=== PATIENT | female | born 1995 | race Caucasian/White ===

== ENCOUNTER 2019-05-31 04:02 | Inpatient (IN) ==
[2019-05-31] MEDS ORDERED: BUPIVACAINE 0.25% 30 ML VIAL ONE ×2 (11:02→23:29)
[2019-05-31] MEDS ORDERED: ePHEDrine sulfate 50 MG/ML AMP ONE (11:02)
[2019-05-31] MEDS ORDERED: LACTATED RINGER'S 1,000 ML IV ONE (11:02)
[2019-05-31] MEDS ORDERED: fentaNYL 2MCG/ML ROPIV 1.25MG/ML 100 ML BAG EPI ONE (11:03)
[2019-05-31] MEDS ORDERED: fentaNYL citrate 100 MCG/2 ML VIAL ONE (11:03)
[2019-05-31 11:24] LABS: Hematocrit (blood only) 33.5 % (37-47); Hemoglobin 11.5 g/dL (12.0-16.0); Mean Corpuscular Volume 84.2 fL (80-100); Mean Platelet Volume 10.7 fL (7.4-10.4); Platelet Count 322 K/uL (130-400); RDW Standard Deviation 39.4 fL (36.4-46.3); Red Blood Count 3.98 M/uL (4.2-5.4); White Blood Count 19.02 K/uL (4.8-10.8)
[2019-05-31 11:28] LABS: Mean Corpuscular Hgb Conc 34.3 g/dL (32-36)
--- NOTE | 2019-05-31 11:29 | Anesthesiology Consultation ---
Date of Service May 31, 2019 Assessment & Plan (1) Encounter for pre-operative examination: Chart Review Chart Review: Patient NOT seen in Pre Admission Testing and Acceptable Risk for Labor Epidural Consults Requested none ASA ASA2 Proposed Anesthesia Anesthesia Type: Labor Epidural Risk / Benefits Reviewed With: PT / POA / Parent / Guardian, Accepts Plan and Informed Consent Obtained History Height/Weight Height: 5 ft 7 in Weight: 80.739 kg Allergies Allergy/AdvReac Type Severity Reaction Status Date / Time No Known Allergies Allergy Unverified 03/25/19 15:26 Medications Home Medications Medication Instructions Recorded Confirmed Last Taken PNV cmb#95-ferrous fumarate-FA 1 tab PO DAILY 03/25/19 05/31/19 05/29/19 12:00 [] ranitidine HCl [Zantac 75] 75 mg PO DAILY PRN 03/25/19 05/31/19 05/30/19 23:00 Active Medications Generic Name Dose Route Start Last Admin Trade Name Freq PRN Reason Stop Dose Admin Lactated Ringer's 1,000 mls @ 999 mls/hr 05/31/19 11:02 05/31/19 10:52 Lr IV 05/31/19 12:02 999 mls/hr .Q1H1M ONE Administration NPO Date Last Intake of Fluids: 05/31/19 Time Last Intake of Fluids: 11:24 Date Last Intake of Solids: 05/31/19 Time Last Intake of Solids: 05:00 Exercise / Class Metabolic Activity II 4-5 Yardwork/Stairs/Walk up hill Past Surgical History Surgical History History of laparoscopy (Acute) History of foot surgery Past Anesthesia History No Hx of Anesthesia Complications History of PONV No Hx of PONV and Hx of Motion Sickness Social History Smoking Status: Never smoker Do You Dip or Chew Tobacco: No Hx Alcohol Use: No Hx Substance Use: No substance use type: does not use Review of Systems Patient denies history of abnormal bleeding or bleeding disorder. Patient denies active use of anticoagulants other than low dose aspirin. Patient denies numbness, tingling or weakness in lower extremities. Negative for chest pain or shortness of breath. Patient denies active symptoms of GERD. Patient denies numbness, tingling or weakness in lower extremities. Physical Exam Vital Signs Last Vital Signs Temp 36.7 C 05/31/19 10:29 Pulse 68 05/31/19 10:29 Resp 20 05/31/19 10:29 BP 114/58 L 05/31/19 10:29 Constitutional not obese (Gravid uterus) ENMT Mouth: no TMJ abnormality and oral opening not small Thyromental Distance: > or= 3.5 Finger Breadths Mallampati Class: II Neck normal visual inspection; neck extension not limited Respiratory normal respiratory effort Auscultation: lungs clear to auscultation bilaterally Cardiovascular Rate/Rhythm: regular rate and regular rhythm Heart Sounds: no murmur Neurologic moves all extremities Psychiatric Orientation: alert and oriented x 3 Testing Laboratory Results labs reviewed and ok - plts at [phone]
[2019-05-31] MEDS ORDERED: NALOXONE HCL 0.4 MG/1 ML VIAL/CARP IV PRN (11:36)
[2019-05-31] MEDS ORDERED: NALOXONE HCL 1 MG in SODIUM CHLORIDE 0.9% 1000ML 1,000 ML IV PRN (11:36)
[2019-05-31] MEDS ORDERED: ONDANSETRON INJ 2 MG/ML 2 ML VIAL IV PRN (11:36)
[2019-05-31] MEDS ORDERED: NALBUPHINE HCL INJ 10 MG/ML AMP IV PRN (11:36)
[2019-05-31] MEDS ORDERED: DiphenhydrAMINE HCL 50 MG/ML VIAL IV PRN (11:36)
[2019-05-31] MEDS ORDERED: fentaNYL 2MCG/ML ROPIV 1.25MG/ML 100 ML BAG EPI PRN (11:36)
[2019-05-31] MEDS ORDERED: ePHEDrine sulfate 50 MG/ML AMP IV PRN (11:36)
[2019-05-31] MEDS: LACTATED RINGER'S 1,000 ML IV SCH ×2 (11:54→17:01)
[2019-05-31] MEDS ORDERED: OXYTOCIN 30 UNITS/500 ML BAG IV PRN (18:52)
[2019-06-01] MEDS ORDERED: CITRIC ACID/SODIUM CITRATE 15 ML UDC ONE ×2 (00:06→00:14)
[2019-06-01] MEDS ORDERED: cefOXitin 2,000 MG in DEXTROSE 5% 50 ML IV STA (00:10)
[2019-06-01] MEDS: LACTATED RINGER'S 1,000 ML IV SCH ×4 (00:23→13:59)
[2019-06-01] MEDS ORDERED: LIDOCAINE/EPINEPHRINE 2% 1:200,000 20 ML SDV ONE (01:38)
[2019-06-01] MEDS ORDERED: OXYTOCIN 10 UNITS/ML VIAL ONE ×4 (01:38→02:19)
[2019-06-01] MEDS: OXYTOCIN 10 UNITS/ML VIAL ONE ×2 (01:45→07:35)
[2019-06-01] MEDS ORDERED: MoRPHine SULFATE PF 1 MG/ML 10 ML AMP/VIAL ONE (01:46)
[2019-06-01] MEDS ORDERED: PROMETHAZINE HCL INJ 25 MG/ML 1 ML VIAL ONE (01:56)
[2019-06-01] MEDS ORDERED: NALOXONE HCL 0.4 MG/1 ML VIAL/CARP IV PRN (02:28)
[2019-06-01] MEDS ORDERED: DiphenhydrAMINE HCL 50 MG/ML VIAL IV PRN ×2 (02:28→20:30)
[2019-06-01] MEDS ORDERED: ePHEDrine sulfate 50 MG/ML AMP IV PRN (02:28)
[2019-06-01] MEDS ORDERED: MoRPHine SULFATE PF 1 MG/ML 10 ML AMP/VIAL EPI ONE (02:28)
[2019-06-01] MEDS ORDERED: LACTATED RINGER'S 500 ML IV PRN (02:28)
[2019-06-01] MEDS ORDERED: NALBUPHINE HCL INJ 10 MG/ML AMP IV PRN (02:28)
[2019-06-01] MEDS ORDERED: MoRPHine SULFATE 2 MG/ML CARP IV PRN (02:28)
[2019-06-01] MEDS ORDERED: PROMETHAZINE HCL 25 MG in SODIUM CHLORIDE 0.9% 50 ML IV PRN ×2 (02:28→20:30)
[2019-06-01] MEDS ORDERED: ACETAMINOPHEN 1000 MG/100 ML IV IV PRN (02:28)
[2019-06-01] MEDS ORDERED: NALOXONE HCL 1 MG in SODIUM CHLORIDE 0.9% 1000ML 1,000 ML IV PRN (02:28)
[2019-06-01] MEDS ORDERED: ONDANSETRON INJ 2 MG/ML 2 ML VIAL IV PRN ×2 (02:28→20:30)
[2019-06-01] MEDS ORDERED: NALOXONE HCL 0.08 MG in SYRINGE 1.8 ML IV PRN (02:28)
[2019-06-01] MEDS ORDERED: NO NARCOTICS OR SEDATIVES SCH (02:30)
[2019-06-01] MEDS ORDERED: SODIUM CHLORIDE 0.9% 1000ML 1,000 ML IV SCH (02:30)
[2019-06-01] MEDS ORDERED: DC INTRASPINAL MORPHINE SCH (02:30)
[2019-06-01] MEDS ORDERED: HYDROCORTISONE ACETATE 25 MG SUPP PR PRN (02:34)
[2019-06-01] MEDS ORDERED: SUPERCREAM 0.870% 15 GM JAR EXT PRN (02:34)
[2019-06-01] MEDS ORDERED: SENNA 8.6 MG TAB PO PRN (02:34)
[2019-06-01] MEDS ORDERED: BENZOCAINE 20% AER SPR 82.5 GM CAN EXT PRN (02:34)
[2019-06-01] MEDS ORDERED: DIPHTHERIA/TETANUS/PERTUSSIS 0.5 ML SYR/VIAL IM ONE (02:34)
[2019-06-01] MEDS ORDERED: MAGNESIUM HYDROXIDE SUSP 30 ML UDC PO PRN (02:34)
--- NOTE | 2019-06-01 02:34 | Post Operative Brief Note ---
Immediate Post Op Note v1 Date of Surgery June 01, 2019 Pre & Post Diagnosis Operation Date: 06/01/19 00:00 Pre-Op Diagnosis: 1. CPD Post-Op Diagnosis: Same Delivery of live female child at 0141 Lower uterine transverse incision Procedure Operation Date: 06/01/19 00:00 Actual Procedures p Section in LD - Raphael Oquendo MD Surgeon Raphael Oquendo MD Social Services Assistant Dr. Hdz Estimated Blood Loss 650 Findings Consistent with Post-Op Diagnosis Fluids 1200 ml Specimens placenta Drains Lyons Catheter Anesthesia Type MAC Epidural Complications none Disposition Accompanied Patient To Recovery: No Disposition: Recovery Room
--- NOTE | 2019-06-01 02:41 | History and Physical Report ---
DATE OF ADMISSION: 06/01/2019 CHIEF COMPLAINT: Arrest of labor. HISTORY OF PRESENT ILLNESS: The patient is a 24-year-old 1, para 0, due date for this is 06/03/2019. She has had no problems. She went into spontaneous labor. When she was about 4+ cm, she was given epidural anesthesia for pain control. Her membranes ruptured spontaneously. She continued to labor. Eventually, her contractions spaced out and we augmented with IV Pitocin and Pitocin was increased up to the point where she began to have decelerations with pushing. She had an anterior cervical lip that basically was present for over 3 hours and would not clear despite the use of Pitocin and the head would not drop into the pelvis and this was despite IV Pitocin used for hours up to the point where she began to get decelerations, we had to turn it off. She was given a diagnosis of cephalopelvic disproportion and scheduled for a primary . PAST MEDICAL HISTORY: She has a long history of vulvodynia. PAST SURGICAL HISTORY: She had a laparoscopy done in which she found pelvic adhesions. She had wisdom teeth removed. ALLERGIES: No known drug allergies. SOCIAL HISTORY: No smoking, no alcohol intake. Works as an holistic nutritionist. FAMILY HISTORY: Mom is 55 in good health. Father 48 in good health. Half-brother and half-sister in good health. REVIEW OF SYSTEMS: Significant only for a long-term history of vulvodynia. PHYSICAL EXAMINATION: GENERAL: Well-developed, well-nourished, 24-year-old white female, alert, oriented x3 and cooperative in no acute distress, appeared her stated age. EYES: Conjunctivae are pink. Sclerae white, no evidence of jaundice. EARS: Had normal light reflex bilaterally. NOSE: Had normal mucosa. Septum is midline. There were no polyps. THROAT: No erythema or evidence of infection. Teeth are in good state of repair. HEAD: Normocephalic, normal distribution of hair. NECK: Supple. Trachea midline. Thyroid is not enlarged. There is no adenopathy appreciated. Both carotids are of good intensity. CHEST: Clear to auscultation and percussion. No wheezes, rales, or rhonchi appreciated. ABDOMEN: Consistent with a term size fetus. No CVA tenderness. MUSCULOSKELETAL: No calf tenderness. PELVIC: Large amount of molding, vertex presentation, -1 station, and anterior lip which was swollen, partial cervical lip that went from about 10 o'clock to anterior. IMPRESSIONS OF THIS CASE: Arrest of labor secondary to cephalopelvic disproportion. History of vulvodynia.
--- NOTE | 2019-06-01 03:19 | Operative Report ---
DATE OF OPERATION: 06/01/2019 PROCEDURE: Primary low segment section. INDICATIONS FOR SURGERY: Cephalopelvic disproportion. PREOPERATIVE DIAGNOSIS: Cephalopelvic disproportion. POSTOPERATIVE DIAGNOSIS: Delivered a live 8-pound 3-ounce female. SURGEON. Maximilian Oquendo MD NEWS BROADCASTER: Harry Hdz MD ESTIMATED BLOOD LOSS: 650 mL. ANESTHESIA: Epidural. OPERATIVE FINDINGS AND PROCEDURE: The patient was brought to the OR table, correctly identified by armband and conversation. Compression stockings had been applied and a Lyons catheter was inserted aseptically in the bladder and connected to gravity drainage. Lower abdomen was painted with an alcohol based sterilizing solution, draped in the usual sterile fashion. Adequacy of the anesthesia was tested and then a Pfannenstiel incision was made and carried down to the anterior fascia by sharp dissection. Hemostasis was secured by electrocauterization. Fascia was incised transversely from the underlying muscle by blunt and sharp dissection. Recti muscles were in the midline exposing peritoneum which was carefully raised and entered. Bladder blade was used to retract the bladder. Incision was made above the vesicouterine fold. The bladder was undermined bluntly and pushed out of the operative field. Lower uterine segment was scored with a knife and then entered with scissors. Meconium stained amniotic fluid was noted at this time. Summer Nanny's hand was inserted into the pelvic cavity. Vectis retractor was applied to the head and with fundal pressure, the infant's head was delivered. Shoulders were then delivered, then the body was delivered without difficulty. Cord was clamped and cut. The infant was attended to by the ornamental iron worker helper who was scrubbed and present at the time of delivery. Following this, cord blood was taken for cord gases. After getting out maximum amount of blood from the cord, the placenta was removed manually. Uterus, tubes, and ovaries were brought out through the incision. Uterine cavity was cleansed with a clean sponge. Ten units of Pitocin was injected into the myometrium. The myometrium layer was approximated with continuous interlocking suture of chromic. Endopelvic fascia was approximated over this layer with continuous interlocking suture of heavy duty Vicryl and 4 [id number] sutures of Vicryl were used to approximate the myometrial defect with [id number] sutures. Following this, hemostasis was good. The pelvis was cleansed of all blood clots and debris. The peritoneum was restored with a running chromic gut suture restoring the vesicouterine fold. Uterus, tubes, and ovaries were reinserted into the pelvic cavity. Peritoneum was closed with a mattress suture of chromic catgut. Recti muscles were approximated with interrupted [id number]-[id number] suture of chromic catgut. The fascia was closed with continuous interlocking suture of Vicryl on each side and tied in the midline. SubQ was approximated with running plain. The skin edges were approximated with staple clips. The patient tolerated the procedure well and left the OR in good condition. I attest to the content of the Intraoperative Record and any orders documented therein. Any exception s are noted below.
[2019-06-01] MEDS ORDERED: OXYTOCIN 20 UNITS in LACTATED RINGER'S 1,000 ML IV SCH (05:45)
[2019-06-01] MEDS ORDERED: CITRIC ACID/SODIUM CITRATE 15 ML UDC PO SCH (06:00)
--- NOTE | 2019-06-01 07:09 | Anesthesia Procedure Note ---
Date of Service June 01, 2019 Anesthesia Post Epidural Note Vital Signs Vital Signs: Temp Pulse Resp BP Pulse Ox 37.5 C 88 18 100/48 L 97 06/01/19 06:10 06/01/19 06:10 06/01/19 06:10 06/01/19 06:10 06/01/19 06:10 Pain Intensity Abdomen: Pain Intensity: 1 Notes Mental Status: alert / awake / arousable and participated in evaluation Nausea / Vomiting: adequately controlled Pain: adequately controlled Airway Patency, RR, SpO2: stable & adequate BP & HR: stable & adequate Hydration State: stable & adequate Neuraxial Anesthesia: was administered and sensory block is resolving Anesthetic Complications: no major complications apparent and Pt Satisfied with anesthetic care Epidural: Removed without complications and With tip intact
--- NOTE | 2019-06-01 07:09 | Anesthesiology Progress Note ---
Date of Service June 01, 2019 Anesthesia Post Procedure Vital Signs Vital Signs: Temp Pulse Pulse Resp BP BP Pulse Ox 06/01/19 06:10 37.5 C 88 18 100/48 L 97 06/01/19 05:10 37.1 C 95 H 16 108/56 L 92 06/01/19 04:58 91 H 129/58 L 100 06/01/19 04:53 86 100 06/01/19 04:48 94 H 125/56 L 100 06/01/19 04:43 93 H 99 06/01/19 04:38 37.1 C 94 H 18 136/61 100 06/01/19 04:33 105 H 100 06/01/19 04:28 103 H 127/61 100 06/01/19 04:23 97 H 100 06/01/19 04:18 99 H 139/59 L 100 06/01/19 04:13 106 H 100 06/01/19 04:08 106 H 18 118/56 L 100 06/01/19 04:03 89 99 06/01/19 03:58 88 121/58 L 99 06/01/19 03:53 83 99 06/01/19 03:48 85 120/55 L 99 06/01/19 03:43 89 100 06/01/19 03:38 37.0 C 91 H 16 121/56 L 100 06/01/19 03:33 87 100 06/01/19 03:28 85 18 118/55 L 99 06/01/19 03:23 94 H 100 06/01/19 03:20 18 06/01/19 03:18 83 120/57 L 99 06/01/19 03:13 87 100 06/01/19 03:08 88 18 121/62 98 06/01/19 03:03 101 H 98 06/01/19 02:58 37.4 C 102 H 16 97 06/01/19 02:53 100 H 97 06/01/19 02:48 92 H 18 111/57 L 100 06/01/19 02:43 84 100 06/01/19 02:38 38.2 C H 98 H 16 107/55 L 100 06/01/19 01:00 105 H 92 06/01/19 00:57 91 H 100 06/01/19 00:52 81 100 06/01/19 00:50 81 125/65 06/01/19 00:47 80 100 06/01/19 00:42 77 100 06/01/19 00:37 77 100 06/01/19 00:36 77 124/65 06/01/19 00:32 78 100 06/01/19 00:27 77 100 06/01/19 00:22 103 H 100 06/01/19 00:21 75 126/72 06/01/19 00:17 79 100 06/01/19 00:12 90 100 06/01/19 00:07 98 H 100 06/01/19 00:02 85 100 06/01/19 00:00 85 113/58 L 05/31/19 23:57 108 H 100 05/31/19 23:54 97 H 120/75 05/31/19 23:52 88 100 05/31/19 23:50 82 117/70 05/31/19 23:47 83 100 05/31/19 23:44 100 H 106/56 L 05/31/19 23:42 86 100 05/31/19 23:39 80 116/57 L 05/31/19 23:37 80 100 05/31/19 23:34 81 113/55 L 05/31/19 23:33 79 113/59 L 05/31/19 23:32 79 100 05/31/19 23:27 79 100 05/31/19 23:23 79 101/56 L 05/31/19 23:22 77 99 05/31/19 23:17 80 100 05/31/19 23:12 82 100 05/31/19 23:09 36.9 C 80 18 106/56 L 05/31/19 23:07 79 100 05/31/19 23:02 82 100 05/31/19 22:57 80 100 05/31/19 22:53 80 113/58 L 05/31/19 22:52 110 H 100 05/31/19 22:47 87 100 05/31/19 22:42 92 H 100 05/31/19 22:38 85 120/67 05/31/19 22:37 84 100 05/31/19 22:32 91 H 100 05/31/19 22:27 82 100 05/31/19 22:23 87 117/64 05/31/19 22:22 84 100 05/31/19 22:17 95 H 100 05/31/19 22:12 105 H 100 05/31/19 22:09 104 H 131/67 05/31/19 22:07 107 H 100 05/31/19 22:02 77 100 05/31/19 21:57 77 99 05/31/19 21:54 75 102/51 L 05/31/19 21:52 74 99 05/31/19 21:47 76 99 05/31/19 21:42 72 100 05/31/19 21:38 72 109/56 L 05/31/19 21:37 72 99 05/31/19 21:32 72 100 05/31/19 21:27 66 100 05/31/19 21:24 73 115/57 L 05/31/19 21:22 72 100 05/31/19 21:17 84 100 05/31/19 21:12 89 100 05/31/19 21:08 37.0 C 82 18 126/65 05/31/19 21:07 81 100 05/31/19 21:02 82 100 05/31/19 20:57 81 100 05/31/19 20:53 82 130/70 05/31/19 20:52 80 100 05/31/19 20:47 76 100 05/31/19 20:42 91 H 100 05/31/19 20:38 82 126/64 05/31/19 20:37 92 H 100 05/31/19 20:32 83 100 05/31/19 20:27 93 H 100 05/31/19 20:24 94 H 116/72 05/31/19 20:22 89 100 05/31/19 20:17 102 H 100 05/31/19 20:12 123 H 100 05/31/19 20:08 76 110/57 L 05/31/19 20:07 76 100 05/31/19 20:02 83 100 05/31/19 19:57 78 100 05/31/19 19:53 77 103/57 L 05/31/19 19:52 74 100 05/31/19 19:47 75 100 05/31/19 19:42 81 100 05/31/19 19:39 76 110/55 L 05/31/19 19:37 75 100 05/31/19 19:32 78 100 05/31/19 19:27 91 H 100 05/31/19 19:23 78 112/61 05/31/19 19:22 79 100 05/31/19 19:17 83 100 05/31/19 19:12 94 H 100 05/31/19 19:08 79 127/60 05/31/19 19:07 89 100 05/31/19 19:02 81 100 05/31/19 18:57 36.8 C 90 18 100 05/31/19 18:53 106 H 129/69 05/31/19 18:52 105 H 100 05/31/19 18:47 107 H 100 05/31/19 18:42 79 100 05/31/19 18:38 81 123/67 05/31/19 18:37 81 100 05/31/19 18:32 79 100 05/31/19 18:27 78 100 05/31/19 18:23 77 128/67 05/31/19 18:22 76 100 05/31/19 18:17 84 100 05/31/19 18:12 75 100 05/31/19 18:08 73 129/68 05/31/19 18:07 74 100 05/31/19 18:02 85 100 05/31/19 17:57 83 100 05/31/19 17:54 88 126/69 05/31/19 17:52 88 100 05/31/19 17:47 85 100 05/31/19 17:42 82 100 05/31/19 17:38 78 127/72 05/31/19 17:37 74 100 05/31/19 17:32 85 100 05/31/19 17:27 79 100 05/31/19 17:23 77 129/65 05/31/19 17:22 84 100 05/31/19 17:17 77 100 05/31/19 17:12 88 100 05/31/19 17:09 37.2 C 76 18 126/69 05/31/19 17:07 74 100 05/31/19 17:02 88 100 05/31/19 16:57 89 100 05/31/19 16:53 76 116/76 05/31/19 16:52 78 100 05/31/19 16:47 82 100 05 16:42 84 100 05 16:38 78 127/67 05 16:37 80 100 05/31/19 16:32 84 100 05/31/19 16:27 103 H 99 05/31/19 16:23 78 121/63 05/31/19 16:22 79 100 05/31/19 16:17 78 99 05/31/19 16:12 80 99 05/31/19 16:08 81 121/66 05/31/19 16:07 81 99 05/31/19 16:02 80 100 05/31/19 15:57 77 100 05/31/19 15:54 74 118/70 05/31/19 15:52 77 99 05/31/19 15:47 78 100 05/31/19 15:42 80 100 05/31/19 15:38 83 116/67 05/31/19 15:37 80 100 05/31/19 15:32 78 100 05/31/19 15:27 81 100 05/31/19 15:23 79 120/68 05/31/19 15:22 79 100 05/31/19 15:17 81 100 05/31/19 15:12 77 100 05/31/19 15:08 85 118/71 05/31/19 15:07 83 100 05/31/19 15:05 37.2 C 18 05/31/19 15:02 81 100 05/31/19 14:57 81 100 05/31/19 14:53 69 117/61 05/31/19 14:52 78 99 05/31/19 14:47 69 99 05/31/19 14:42 72 100 05/31/19 14:38 77 118/65 05/31/19 14:37 76 100 05/31/19 14:32 72 100 05/31/19 14:27 71 100 05/31/19 14:23 71 108/58 L 05/31/19 14:22 70 99 05/31/19 14:19 36.9 C 16 05/31/19 14:17 75 100 05/31/19 14:12 83 100 05/31/19 14:09 67 108/59 L 05/31/19 14:07 66 100 05/31/19 14:02 65 100 05/31/19 13:57 69 99 05/31/19 13:53 68 16 107/57 L 05/31/19 13:52 69 100 05/31/19 13:47 67 100 05/31/19 13:42 83 100 05/31/19 13:38 74 112/58 L 05/31/19 13:37 78 99 05/31/19 13:32 101 H 100 05/31/19 13:27 83 100 05/31/19 13:24 85 113/62 05/31/19 13:22 79 100 05/31/19 13:17 81 100 05/31/19 13:12 82 100 05/31/19 13:08 37.0 C 86 16 117/68 05/31/19 13:07 85 100 05/31/19 13:02 80 100 05/31/19 12:57 79 100 05/31/19 12:53 71 119/65 05/31/19 12:52 73 100 05/31/19 12:47 75 100 05/31/19 12:42 76 100 05/31/19 12:39 72 119/67 05/31/19 12:37 75 100 05/31/19 12:32 79 100 05/31/19 12:27 82 100 05/31/19 12:22 96 H 124/77 100 05/31/19 12:20 92 H 126/74 05/31/19 12:18 90 118/70 05/31/19 12:17 91 H 100 05/31/19 12:16 94 H 118/69 05/31/19 12:14 96 H 123/70 05/31/19 12:12 91 H 125/70 100 05/31/19 12:10 93 H 123/68 05/31/19 12:08 88 126/63 05/31/19 12:07 92 H 100 05/31/19 12:06 92 H 125/70 05/31/19 12:04 96 H 128/69 05/31/19 12:02 81 126/70 100 05/31/19 12:00 90 125/71 05/31/19 11:59 80 122/65 05/31/19 11:57 86 100 05/31/19 11:52 86 100 05/31/19 11:47 98 H 100 05/31/19 11:46 36.7 C 91 H 20 123/69 05/31/19 11:27 75 119/60 05/31/19 10:29 36.7 C 68 20 114/58 L 05/31/19 09:28 75 20 124/78 Pain Intensity Abdomen: Pain Intensity: 1 Transfer of Care Handoff Completed per policy Notes Mental Status: alert / awake / arousable and participated in evaluation Nausea / Vomiting: adequately controlled Pain: adequately controlled Airway Patency, RR, SpO2: stable & adequate BP & HR: stable & adequate Hydration State: stable & adequate Neuraxial Anesthesia: was administered and sensory block is resolving Anesthetic Complications: no major complications apparent and Pt Satisfied with anesthetic care
[2019-06-01] MEDS: DOCUSATE SODIUM 100 MG CAP PO SCH ×2 (08:08→21:44)
[2019-06-01] MEDS: FERROUS SULFATE 325 MG TAB PO SCH (08:08)
[2019-06-01] MEDS: SIMETHICONE 80 MG CHEW PO SCH ×4 (08:08→21:44)
[2019-06-01] MEDS: PRENATAL VITAMIN 1 TAB PO SCH (08:08)
[2019-06-01] MEDS: KETOROLAC 30 MG/ML VIAL IV PRN ×2 (14:11→20:07)
[2019-06-01] MEDS ORDERED: KETOROLAC 30 MG/ML VIAL IV PRN (20:30)
[2019-06-01] MEDS ORDERED: ZOLPIDEM TARTRATE 5 MG TAB PO PRN (20:30)
[2019-06-01] MEDS ORDERED: MEPERIDINE HCL 50 MG/ML CARP IV PRN (20:30)
[2019-06-02] MEDS: IBUPROFEN 600 MG TAB PO PRN ×6 (00:19→20:28)
[2019-06-02] MEDS: OXYCODONE/ACETAMINOPHEN 5mg/325mg TAB PO PRN ×6 (00:19→20:28)
[2019-06-02 07:13] LABS: Basophils # (auto) 0.02 K/uL (0-0.2); Basophils % (auto) 0.1 %; Eosinophils # (auto) 0.39 K/uL (0-0.5); Eosinophils % (auto) 1.9 %; Hematocrit (blood only) 27.2 % (37-47); Hemoglobin 9.2 g/dL (12.0-16.0); Immature Granulocytes # (auto) 0.11 K/uL (0.00-0.02); Immature Granulocytes % (auto) 0.5 %; Lymphocytes # (auto) 2.83 K/uL (1.2-3.4); Lymphocytes % (auto) 13.7 %; Mean Corpuscular Hgb Conc 33.8 g/dL (32-36); Mean Corpuscular Volume 85.8 fL (80-100); Mean Platelet Volume 10.4 fL (7.4-10.4); Monocytes # (auto) 1.77 K/uL (0.11-0.59); Monocytes % (auto) 8.5 %; Neutrophils # (auto) 15.61 K/uL (1.4-6.5); Neutrophils % (auto) 75.3 %; Platelet Count 259 K/uL (130-400); RDW Coefficient of Variation 13.6 % (11.5-14.5); RDW Standard Deviation 42.5 fL (36.4-46.3); Red Blood Count 3.17 M/uL (4.2-5.4); White Blood Count 20.73 K/uL (4.8-10.8)
[2019-06-02] MEDS: DOCUSATE SODIUM 100 MG CAP PO SCH ×2 (08:17→20:28)
[2019-06-02] MEDS: FERROUS SULFATE 325 MG TAB PO SCH (08:18)
[2019-06-02] MEDS: SIMETHICONE 80 MG CHEW PO SCH ×4 (08:18→20:28)
[2019-06-02] MEDS: PRENATAL VITAMIN 1 TAB PO SCH (08:39)
--- NOTE | 2019-06-02 09:41 | Obstetrical Progress Note ---
Date of Service June 02, 2019 Physical Exam Physical Exam: abdomen soft and non tender bowel sounds are normal passing flatus incision is clean and dry vaginal bleeding scant hgb 9.2 ambulating well Results & Data Vital Signs (Past 12 Hours) Vital Signs Temp Pulse Pulse Resp BP Pulse Ox 06/02/19 08:00 36.7 C 69 18 88/48 L 98 06/02/19 00:00 36.5 C 93 H 18 102/54 L 97
--- NOTE | 2019-06-02 15:31 | Anesthesiology Progress Note ---
Date of Service June 02, 2019 Anesthesia Post Procedure Vital Signs Vital Signs: Temp Pulse Pulse Resp BP Pulse Ox 06/02/19 08:00 36.7 C 69 18 88/48 L 98 06/02/19 00:00 36.5 C 93 H 18 102/54 L 97 06/01/19 20:10 37.0 C 90 18 99/60 L 100 06/01/19 20:03 18 100 06/01/19 19:00 18 100 06/01/19 18:00 18 96 06/01/19 17:20 15 97 06/01/19 17:04 36.6 C 88 18 92/47 L 98 06/01/19 16:10 89 16 97 Pain Intensity Abdomen: Pain Intensity: 1 Notes Mental Status: see notes below (Pt was sleeping - spoke to her who was in the room) Nausea / Vomiting: adequately controlled Pain: adequately controlled Airway Patency, RR, SpO2: stable & adequate BP & HR: stable & adequate Hydration State: stable & adequate Neuraxial Anesthesia: was administered and sensory block resolved Anesthetic Complications: no major complications apparent and Pt Satisfied with anesthetic care
[2019-06-02] MEDS ORDERED: BISACODYL 5 MG TABEC PO SCH (20:00)
[2019-06-03] MEDS: OXYCODONE/ACETAMINOPHEN 5mg/325mg TAB PO PRN ×5 (01:25→20:49)
[2019-06-03] MEDS: IBUPROFEN 600 MG TAB PO PRN ×5 (01:25→20:48)
[2019-06-03] MEDS ORDERED: BISACODYL 10 MG SUPP PR PRN (02:34)
[2019-06-03] MEDS: PRENATAL VITAMIN 1 TAB PO SCH (08:42)
[2019-06-03] MEDS: DOCUSATE SODIUM 100 MG CAP PO SCH ×2 (08:42→22:03)
[2019-06-03] MEDS: SIMETHICONE 80 MG CHEW PO SCH ×3 (08:42→22:03)
[2019-06-03] MEDS: FERROUS SULFATE 325 MG TAB PO SCH (08:42)
[2019-06-03 09:04] LABS: Hematocrit (blood only) 28.8 % (37-47); Hemoglobin 9.5 g/dL (12.0-16.0)
--- NOTE | 2019-06-03 12:29 | Obstetrical Progress Note ---
Date of Service June 03, 2019 Physical Exam Physical Exam: abdomen soft and non tender vaginal bleeding scant to moderate hgb 9.5 incision is clean and dry no calf tenderness ambulating well Results & Data Vital Signs (Past 12 Hours) Vital Signs Temp Pulse Resp BP Pulse Ox 06/03/19 12:00 36.8 C 84 18 97/58 L 99 06/03/19 08:00 36.9 C 89 18 97/56 L 97
[2019-06-04] MEDS: OXYCODONE/ACETAMINOPHEN 5mg/325mg TAB PO PRN ×4 (00:21→11:36)
[2019-06-04] MEDS: IBUPROFEN 600 MG TAB PO PRN ×3 (00:25→11:34)
[2019-06-04] MEDS: FERROUS SULFATE 325 MG TAB PO SCH (07:52)
[2019-06-04] MEDS: PRENATAL VITAMIN 1 TAB PO SCH (07:52)
[2019-06-04] MEDS: DOCUSATE SODIUM 100 MG CAP PO SCH (07:52)
--- NOTE | 2019-06-04 08:34 | Obstetrical Progress Note ---
Date of Service June 04, 2019 Physical Exam Physical Exam: abdomen soft and non tender passing flatus incision is clean and dry no calf tenderness ambulating well ready for discharge hgb 9.5 Results & Data Vital Signs (Past 12 Hours) Vital Signs Temp Pulse Resp BP BP Pulse Ox 06/04/19 08:00 36.8 C 78 18 110/71 100 06/03/19 22:55 36.7 C 97 H 18 108/68 98
--- NOTE | 2019-06-04 11:06 | Discharge Summary ---
Radha Christy was admitted in spontaneous labor at 39+ weeks gestation. She received an epidural for anesthesia. She then was augmented with IV Pitocin, she went to full dilatation. She pushed for several hours. Eventually the baby started to experience decelerations with pushing. She was diagnosed with cephalopelvic disproportion taken to the OR where she underwent primary low segment section at which a pelvic inlet dystocia was diagnosed. Infant was delivered without difficulty. Postoperatively the patient did well. Her postoperative hemoglobin went from preop 11.5, hematocrit 33.5 to postop 9.5, hematocrit 28.8. Postoperatively, she had an uneventful course. She remained afebrile. Her bowel sounds returned promptly. At the time of discharge, she was ambulating well, eating well and given prescriptions for Percocet and Motrin for pain control and instructed to call the office if she had a temperature over 100 or any heavy bleeding and to return for removal of kristi.
== END 2019-06-04 14:48 | disposition home or self-care (01) | DRG 788 ==
LOC: OPB 04:02 → 4S1 04:06 → 4S2 06-01 05:29

== ENCOUNTER 2025-01-03 17:38 | Inpatient (IN) ==
--- NOTE | 2025-01-03 18:15 | History & Physical Report ---
Date of Service January 03, 2025 Assessment & Plan (1) Encounter for pre-operative examination: Plan: Repeat section. The patient was counseled to the nature of the procedure including alternatives such as labor. Risks were discussed including bleeding infection injury to bowel bladder ureter vessels and even baby. The risks of internal organ injury were discussed as being higher with prior sections. Deep Vein Thrombosis, pulmonary embolus and breakdown of the incision discussed. Deep vein thrombosis pulmonary embolus hernia and failure of the incision to heal were discussed Patient verbalized understanding of this and was given ample time to ask questions declines tubal. History of Present Illness Primary Care Provider: NO PCP Visit NAYAN Calculator Estimated Delivery Date Method Current WG Current Estimate 01/08/25 LMP (Certain) 38w 2d Other Estimates 01/10/25 Ultrasound #1 38w 0d LMP: 04/03/24 : 3 Full term: 1 Premature: 0 Total Number of Induced Abortions: 0 Total Number of Spontaneous Abortions: 1 Ectopics: 0 Multiple births: 0 Number of Living Children: 1 and Delivery Plans Previous *Favoring repeat. C/S SCHEDULED FOR 01/06/[address] 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, and Type 4 *FOB negative Hx of PPD Conceived on clomid Marginal cord insertion Rh neg *Rhogam given 10/19/24 - SP Protocols Allergies Allergy/AdvReac Type Severity Reaction Status Date / Time No Known Allergies Allergy Verified 12/27/24 10:46 Home Medications Medication Instructions Recorded Confirmed Type vit no.95-ferrous 1 tab PO DAILY 03/25/19 01/03/25 History fumarate 28 mg-folic acid 800 mcg tablet () breast pump #1 ea 10/06/24 12/27/24 Rx famotidine 20 mg tablet (Pepcid) 20 mg PO BID PRN Heartburn 12/23/24 01/03/25 History pseudoephedrine HCl [Sudafed] PO 12/27/24 12/27/24 History Patient History Medical History (Updated 12/23/24 @ 12:59 by Trina Freire PA-C) History of anesthesia reaction (2010) after foot surgery, patient woke up flailing, disoriented, uncontrollable - had to be resedated and woke up slowly without any further issues. Heartburn Asthma exercise induced, no inhalers - rarely has issues History of depression (2019) Miscarriage (07/2023) no surgical intervention needed Surgical History History of section (2018) History of colonoscopy History of foot surgery (2010) History of laparoscopy w/ adhesion removal S/P wisdom tooth extraction Family History Other No family history of adverse response to anesthesia Denies family history of Ovarian cancer Breast cancer Colorectal cancer Social History (Updated 05/31/24 @ 09:15 by Bety Andrews LPN) Smoking Status: Never smoker Second Hand Exposure: No; Do You Dip or Chew Tobacco: No; Hx Alcohol Use: No Hx Substance Use: No Preferred Language: Surinamese Communication Ability: Effective Nib Finisher Required: No Beliefs That Will Affect Care: None marital status: marital status details: Spouse Current Living Situation: Spouse and Family Current Living Situation Comment: lives with , daughter, 4 cats- changes litter, &guinea pigs current occupational status: employed current occupation: Doctor of Optometry How many Children do You have: 1 Feels Safe at Home: Yes Assistive Devices: Glasses Physical Exam Constitutional: WD/WN, vitals as above well developed and well nourished Respiratory: normal respiratory effort, lungs clear to auscultation normal respiratory effort Cardiovascular: RRR, no murmur, no edema Gastrointestinal (Abdomen): normal bowel sounds, soft, nontender, no hepatosplenomegaly Results & Data Vital Signs (Past 12 Hours) Vital Signs Pulse BP 01/03/25 18:01 77 112/71 Coding Level of Care Code None Diagnoses Encounter for pre-operative examination Z01.818
--- NOTE | 2025-01-03 18:22 | Communication Note ---
Date of Service: January 03, 2025 Note, active labor 2cm, 90%, C/S
[2025-01-03 18:44] LABS: Hematocrit (blood only) 34.9 % (37.0-47.0); Mean Corpuscular Hemoglobin 29.3 pg (25.0-34.0); Mean Corpuscular Hgb Conc 34.4 g/dL (32.0-36.0); Mean Corpuscular Volume 85.1 fL (80.0-100.0); Mean Platelet Volume 11.5 fL (9.4-12.4); Platelet Count 288 K/uL (130-400); RDW Coefficient of Variation 12.2 % (11.5-14.5); RDW Standard Deviation 37.5 fL (36.4-46.3); White Blood Count 11.63 K/ul (4.8-10.8)
--- NOTE | 2025-01-03 19:06 | Anesthesiology Consultation ---
Date of Service January 03, 2025 Assessment & Plan (1) Encounter for pre-operative examination: Chart Review Chart Review: Acceptable Risk for Surgery and Patient NOT seen in Pre Admission Testing Consults Requested none History Surgery Operation Date: 01/03/25 18:45 Proposed Procedures p Section in LD - JManjete Mckeon MD, FACOG Height/Weight Height: 5 ft 7 in Weight: 77.111 kg Allergies Allergy/AdvReac Type Severity Reaction Status Date / Time No Known Allergies Allergy Verified 12/27/24 10:46 Medications Home Medications Medication Instructions Recorded Confirmed Last Taken vit no.95-ferrous 1 tab PO DAILY 03/25/19 01/03/25 05/29/19 12:00 fumarate 28 mg-folic acid 800 mcg tablet () breast pump #1 ea 10/06/24 12/27/24 Unknown famotidine 20 mg tablet (Pepcid) 20 mg PO BID PRN Heartburn 12/23/24 01/03/25 01/02/25 pseudoephedrine HCl [Sudafed] PO 12/27/24 12/27/24 Unknown Past Medical History Medical History History of anesthesia reaction (2010) after foot surgery, patient woke up flailing, disoriented, uncontrollable - had to be resedated and woke up slowly without any further issues. Heartburn Asthma exercise induced, no inhalers - rarely has issues History of depression (2018) Miscarriage (07/2023) no surgical intervention needed Exercise / Class Metabolic Activity II 4-5 Yardwork/Stairs/Walk up hill Past Family History Family History Other No family history of adverse response to anesthesia Denies family history of Ovarian cancer Breast cancer Colorectal cancer Past Surgical History Surgical History History of colonoscopy History of section (2018) S/P wisdom tooth extraction History of foot surgery (2010) History of laparoscopy w/ adhesion removal Past Anesthesia History No Hx of Anesthesia Complications and No Family Hx of Anesthesia Complications Social History Smoking Status: Never smoker Do You Dip or Chew Tobacco: No Hx Alcohol Use: No Hx Substance Use: No substance use type: does not use Physical Exam Vital Signs Last Vital Signs Temp 36.9 C 01/03/25 18:12 Pulse 77 01/03/25 18:01 Resp 20 01/03/25 18:45 BP 112/71 01/03/25 18:01 Testing Laboratory Results 01/03/25 18:18
[2025-01-03] MEDS ORDERED: PHENYLEPHRINE HCL 25 MG/250 ML NSS IV ONE (19:09)
[2025-01-03] MEDS ORDERED: fentaNYL citrate PF 100 MCG/2 ML VIAL ONE (19:12)
[2025-01-03] MEDS ORDERED: MoRPHine SULFATE PF 1 MG/ML 10 ML AMP/VIAL ONE (19:12)
[2025-01-03] MEDS ORDERED: DEXAMETHASONE SOD INJ 4 MG/ML VIAL ONE (19:12)
[2025-01-03] MEDS ORDERED: ONDANSETRON INJ 2 MG/ML 2 ML VIAL ONE (19:12)
[2025-01-03] MEDS ORDERED: LACTATED RINGER'S 1,000 ML IV SCH ×2 (19:15→20:54)
[2025-01-03] MEDS: CITRIC ACID/SODIUM CITRATE 15 ML UDC PO SCH (19:24)
[2025-01-03] MEDS: ceFAZolin 2000MG 2,000 MG/15 ML SYR IV SCH (19:26)
[2025-01-03] MEDS: LACTATED RINGER'S 1,000 ML IV SCH (19:28)
[2025-01-03] MEDS: ACETAMINOPHEN 500 MG TAB PO SCH (19:29)
[2025-01-03] MEDS ORDERED: oxyCODONE HCL IR 5 MG TAB (IMMEDIATE RELEASE) PO PRN (19:49)
[2025-01-03] MEDS ORDERED: NALOXONE HCL 0.08 MG in SYRINGE 1.8 ML IV PRN (19:49)
[2025-01-03] MEDS ORDERED: NALBUPHINE HCL INJ 10 MG/ML AMP IV PRN (19:49)
[2025-01-03] MEDS ORDERED: HYDROmorphone INJ 0.5 MG/0.5 ML SYR IV PRN (19:49)
[2025-01-03] MEDS ORDERED: PROMETHAZINE 6.25 MG/50.25 ML BAG IV PRN (19:49)
[2025-01-03] MEDS ORDERED: ONDANSETRON INJ 2 MG/ML 2 ML VIAL IV PRN (19:49)
[2025-01-03] MEDS ORDERED: NALOXONE HCL 0.4 MG/1 ML VIAL/CARP IV PRN (19:49)
[2025-01-03] MEDS ORDERED: NALOXONE HCL 1 MG in SODIUM CHLORIDE 0.9% 1,000 ML IV PRN (19:49)
[2025-01-03] MEDS ORDERED: ePHEDrine sulfate 50 MG/ML AMP IV PRN (19:49)
[2025-01-03] MEDS ORDERED: DC INTRASPINAL MORPHINE SCH (20:00)
[2025-01-03] MEDS ORDERED: NO NARCOTICS OR SEDATIVES SCH (20:00)
--- NOTE | 2025-01-03 20:41 | Operative Report ---
Post Operative Report Pre & Post Diagnosis Operation Date: 01/03/25 18:45 Pre-Op Diagnosis: 1. Previous , labor Post-Op Diagnosis: 1. Same 2. Delivery of live female child at 1999 I identified the patient and participated in the time-out.: Yes Procedure Operation Date: 01/03/25 18:45 Actual Procedures p Section in LD - Don Mckeon MD, FACOG Surgeon Don Mckeon MD, FACOG Explosion Welder . Quantitative Blood Loss (QBL) 337 Findings Consistent with Post-Op Diagnosis Specimens . Description of Procedure Regional anesthetic had been given by anesthesia patient was prepped and draped with a leftward tilt preoperative antibiotics had been given in appropriate timing by anesthesiology. Once the prep was allowed to fully dry timeout was performed. Pickups with teeth were used to test the incision area was found to be adequate for incision as the patient did not feel sharp pain. Scalpel was used to make a Pfannenstiel incision on the lower abdomen. We then cut through the subcutaneous fat down to the level of the anterior rectus sheath fascia this was cut in the midline and then extended laterally with the curved Avila scissors. At this stage we then placed 2 Claribel clamps on the anterior aspect of the fascia. Using the curved Avila's we are able to dissect the fascia superiorly away from the rectus muscles. Care was taken to maintain hemostasis. Claribel clamps were then placed to the inferior aspect of the anterior sheath of the fascia. Fascia was then dissected away from the rectus muscles inferiorly towards the pubic bone. A Claribel was then placed in the midline both inferiorly and superiorly. This was to allow exposure by retraction rectus muscles were in the midline with were then able to cut through the peritoneum and then enter the peritoneal cavity. Opening was enlarged to allow exposure of the peritoneal cavity both superiorly and inferiorly. Once adequate space was obtained a bladder retractor was placed to expose the lower segment Metzenbaums were used to dissect the bladder flap inferiorly away from the uterus. This was done sharply bladder retractor was then repositioned to expose the lower segment of the uterus Fresh scalpel was used to make a low transverse incision on the uterus. Uterus was then entered bluntly with the operators finger, membranes ruptured and the opening was enlarged using the operators fingers bluntly pulling superiorly and inferiorly to allow exposure. Baby was aranza breech membranes were ruptured fluid was clear by flexing the breech and then pressure from the assistant professor of psychology on the abdomen the baby's breech was delivered and then back was aimed anterior gentle traction the baby easy delivery of the arms and then had live vigorous female infant. Fluid was clear cord clamped and cut cord gases obtained cord blood obtained baby handed to pediatrics. Placenta removed was removed with traction we ensure the entire placenta was removed with a moist lap sponge into the uterus Note there were some adhesions of the right round ligament to the abdominal sidewall these did not interfere with the case Uterus was then exteriorized. IV Pitocin had been started by anesthesia tone improved there were no extensions the uterus was then closed using 0 Monocryl in a 2 layer closure the first layer closed in a running locked fashion from left to right and then a second closure from left to right in a running nonlocked fashion. At this stage hemostasis was excellent. Uterus was placed back in the peritoneal cavity with suction irrigation out and inspection of the uterus at this stage revealed excellent hemostasis Retractors were removed urine color was clear at this stage of the case we insp ected the rectus muscles they were hemostatic fascia was closed with 0 Vicryl subcutaneous fat was irrigated and closed with 3-0 Vicryl skin closed with 4-0 subcuticular Monocryl I attest to the content of the Intraoperative Record and any orders documented therein. Any exceptions are noted below. OB Procedure Charges 32183
--- NOTE | 2025-01-03 20:52 | Anesthesiology Progress Note ---
Date of Service January 03, 2025 Anesthesia Post Procedure Vital Signs Vital Signs: Temp Pulse Resp BP Pulse Ox 01/03/25 20:47 100 01/03/25 20:47 65 01/03/25 20:41 99 01/03/25 20:41 66 01/03/25 20:41 67 01/03/25 20:41 108/64 01/03/25 18:45 20 01/03/25 18:45 20 01/03/25 18:12 36.9 C 20 01/03/25 18:01 77 112/71 Transfer of Care Handoff Completed per policy Notes Mental Status: alert / awake / arousable and participated in evaluation Patient Amnestic to Procedure: Yes Nausea / Vomiting: adequately controlled Pain: adequately controlled Airway Patency, RR, SpO2: stable & adequate BP & HR: stable & adequate Hydration State: stable & adequate Neuraxial Anesthesia: was administered and sensory block is resolving Anesthetic Complications: no major complications apparent and Pt Satisfied with anesthetic care
[2025-01-03] MEDS ORDERED: MAGNESIUM HYDROXIDE SUSP 30 ML UDC PO PRN (20:54)
[2025-01-03] MEDS ORDERED: CALCIUM CARBONATE 500 MG CHEWABLE TAB PO PRN (20:54)
[2025-01-03] MEDS ORDERED: HYDROCORTISONE ACETATE 25 MG SUPP PR PRN (20:54)
[2025-01-03] MEDS ORDERED: BENZOCAINE 20% SPRY 85 APPLN/85 GM CAN EXT PRN (20:54)
[2025-01-03] MEDS ORDERED: SODIUM CHLORIDE 0.9% 1,000 ML IV SCH (20:54)
[2025-01-03] MEDS ORDERED: SENNA 8.6 MG TAB PO PRN (20:54)
[2025-01-03] MEDS: AZITHROMYCIN 500 MG/255 ML BAG IV SCH (21:08)
[2025-01-03] MEDS: KETOROLAC 30 MG/ML VIAL IV SCH (21:16)
[2025-01-04] MEDS: OXYTOCIN 20 UNITS/LR 1,002 ML IV SCH (01:53)
[2025-01-04] MEDS: ACETAMINOPHEN 325 MG TAB PO SCH (03:08)
[2025-01-04] MEDS: diphenhydrAMINE 50 MG/ML VIAL IV PRN (03:18)
--- NOTE | 2025-01-04 06:36 | Obstetrical Progress Note ---
Date of Service January 04, 2025 Assessment & Plan (1) state: Plan Radha is a 29yo day 1 s/p uncomplicated repeat . Feels well today, VSS Continue care Encourage ambulation and Pain control with ibuprofen as needed Hgb: 12.0 on 01/03 Ordered Rhophylac as pt is Rh- Home in 1-2 days Follow up with Dr. Mckeon in 6wks Admission and Anticipated Discharge Date Admission Date: January 03, 2025 Supervising Physician Co-Signing Physician Notes Resident Physician Supervision Note: I was present with [Name of resident] during the history and exam. I discussed the case with the resident and agree with the findings and plan as documented in the note. Any exceptions or clarifications are listed here: [None] Documented By: Don Mckeon MD, FACOG Subjective Radha is a 29yo day 1 s/p uncomplicated repeat . Feeling: good although some abdominal soreness Ambulation: not yet Void: not urinating yet Gas: no Lochia: steady Diet: tolerating Sx: denies other than soreness Physical Exam Physical Exam: Constitutional: WD/WN, vitals as above GI/abd: +BS, abdomen soft, tender to palpation mainly RLQ, fundus firm palpable 2fw+ umbilicus - low-transverse incision scar: healing well- no erythema, swelling, discharge, or bleeding; steristrips in place Ext: no LE edema, calves nontender to palpation, wiggles toes Psychiatric: A&Ox3, euthymic Results & Data Vital Signs (Past 12 Hours) Vital Signs Temp Pulse Pulse Resp BP BP Pulse Ox 01/04/25 04:54 16 99 01/04/25 03:30 16 99 01/04/25 03:30 36.6 C 71 16 96/59 L 99 01/04/25 02:28 16 97 01/04/25 01:39 18 95 01/04/25 00:00 18 99 01/03/25 23:30 18 96 01/03/25 23:30 37 C 79 18 103/57 L 96 01/03/25 23:07 75 01/03/25 23:07 99/60 L 01/03/25 23:06 97 01/03/25 23:06 73 01/03/25 23:01 97 01/03/25 23:01 79 01/03/25 23:00 18 01/03/25 22:57 83 01/03/25 22:57 104/59 L 01/03/25 22:56 97 01/03/25 22:56 83 01/03/25 22:51 97 01/03/25 22:51 71 01/03/25 22:47 88 01/03/25 22:47 101/61 01/03/25 22:46 97 01/03/25 22:46 93 H 01/03/25 22:41 97 01/03/25 22:41 86 01/03/25 22:37 98 01/03/25 22:37 73 01/03/25 22:37 101/58 L 01/03/25 22:31 97 01/03/25 22:31 71 01/03/25 22:30 36.6 C 18 01/03/25 22:27 80 01/03/25 22:27 98/56 L 01/03/25 22:26 97 01/03/25 22:26 79 01/03/25 22:22 97 01/03/25 22:22 83 01/03/25 22:17 71 01/03/25 22:17 107/64 01/03/25 22:16 98 01/03/25 22:16 70 01/03/25 22:11 99 01/03/25 22:11 77 01/03/25 22:06 99 01/03/25 22:06 76 01/03/25 22:01 99 01/03/25 22:01 58 L 01/03/25 22:00 18 01/03/25 21:57 59 L 01/03/25 21:57 103/59 L 01/03/25 21:56 99 01/03/25 21:56 54 L 01/03/25 21:51 99 01/03/25 21:51 62 01/03/25 21:50 18 01/03/25 21:47 99 01/03/25 21:47 69 01/03/25 21:47 104/61 01/03/25 21:41 99 01/03/25 21:41 64 01/03/25 21:40 18 01/03/25 21:40 70 01/03/25 21:40 103/56 L 01/03/25 21:36 100 01/03/25 21:36 89 01/03/25 21:31 99 01/03/25 21:31 62 01/03/25 21:30 18 01/03/25 21:27 99 01/03/25 21:27 64 01/03/25 21:27 110/57 L 01/03/25 21:22 100 01/03/25 21:22 66 01/03/25 21:20 18 01/03/25 21:17 68 01/03/25 21:17 113/57 L 01/03/25 21:16 100 01/03/25 21:16 74 01/03/25 21:11 100 01/03/25 21:11 69 01/03/25 21:10 18 01/03/25 21:07 100 01/03/25 21:07 62 01/03/25 21:07 108/59 L 01/03/25 21:01 100 01/03/25 21:01 66 01/03/25 21:00 36.4 C L 18 01/03/25 20:56 100 01/03/25 20:56 65 01/03/25 20:56 65 01/03/25 20:56 107/57 L 01/03/25 20:52 100 01/03/25 20:52 63 01/03/25 20:47 100 01/03/25 20:47 65 01/03/25 20:41 99 01/03/25 20:41 66 01/03/25 20:41 67 01/03/25 20:41 108/64 01/03/25 18:45 20 01/03/25 18:45 20 O2 Del Method 01/04/25 04:54 01/04/25 03:30 01/04/25 03:30 Room Air 01/04/25 02:28 01/04/25 01:39 01/04/25 00:00 01/03/25 23:30 01/03/25 23:30 Room Air 01/03/25 23:07 01/03/25 23:07 01/03/25 23:06 01/03/25 23:06 01/03/25 23:01 01/03/25 23:01 01/03/25 23:00 01/03/25 22:57 01/03/25 22:57 01/03/25 22:56 01/03/25 22:56 01/03/25 22:51 01/03/25 22:51 01/03/25 22:47 01/03/25 22:47 01/03/25 22:46 01/03/25 22:46 01/03/25 22:41 01/03/25 22:41 01/03/25 22:37 01/03/25 22:37 01/03/25 22:37 01/03/25 22:31 01/03/25 22:31 01/03/25 22:30 01/03/25 22:27 01/03/25 22:27 01/03/25 22:26 01/03/25 22:26 01/03/25 22:22 01/03/25 22:22 01/03/25 22:17 01/03/25 22:17 01/03/25 22:16 01/03/25 22:16 01/03/25 22:11 01/03/25 22:11 01/03/25 22:06 01/03/25 22:06 01/03/25 22:01 01/03/25 22:01 01/03/25 22:00 01/03/25 21:57 01/03/25 21:57 01/03/25 21:56 01/03/25 21:56 01/03/25 21:51 01/03/25 21:51 01/03/25 21:50 01/03/25 21:47 01/03/25 21:47 01/03/25 21:47 01/03/25 21:41 01/03/25 21:41 01/03/25 21:40 01/03/25 21:40 01/03/25 21:40 01/03/25 21:36 01/03/25 21:36 01/03/25 21:31 01/03/25 21:31 01/03/25 21:30 Room Air 01/03/25 21:27 01/03/25 21:27 01/03/25 21:27 01/03/25 21:22 01/03/25 21:22 01/03/25 21:20 01/03/25 21:17 01/03/25 21:17 01/03/25 21:16 01/03/25 21:16 01/03/25 21:11 01/03/25 21:11 01/03/25 21:10 Room Air 01/03/25 21:07 01/03/25 21:07 01/03/25 21:07 01/03/25 21:01 01/03/25 21:01 01/03/25 21:00 Room Air 01/03/25 20:56 01/03/25 20:56 01/03/25 20:56 01/03/25 20:56 01/03/25 20:52 01/03/25 20:52 01/03/25 20:47 01/03/25 20:47 01/03/25 20:41 01/03/25 20:41 01/03/25 20:41 01/03/25 20:41 01/03/25 18:45 01/03/25 18:45 Resident Activity Tracking Resident Involvement: Resident Care Provided Care Provided: OB Delivery
[2025-01-04] MEDS: SIMETHICONE 80 MG CHEW PO SCH (07:09)
[2025-01-04] MEDS: DOCUSATE SODIUM 100 MG CAP PO SCH (07:09)
[2025-01-04] MEDS: KETOROLAC 30 MG/ML VIAL ONE (07:10)
[2025-01-04 07:31] LABS: Basophils # (auto) 0.02 K/uL (0.00-0.20); Basophils % (auto) 0.1 %; Eosinophils # (auto) 0.01 K/uL (0.00-0.50); Eosinophils % (auto) 0.1 %; Hematocrit (blood only) 30.1 % (37.0-47.0); Hemoglobin 10.3 g/dl (12.0-16.0); Immature Granulocytes # (auto) 0.08 K/uL (0.01-0.20); Immature Granulocytes % (auto) 0.6 %; Lymphocytes # (auto) 1.84 K/uL (1.20-3.40); Lymphocytes % (auto) 12.8 %; Mean Corpuscular Hemoglobin 29.6 pg (25.0-34.0); Mean Corpuscular Hgb Conc 34.2 g/dL (32.0-36.0); Mean Corpuscular Volume 86.5 fL (80.0-100.0); Mean Platelet Volume 11.9 fL (9.4-12.4); Monocytes # (auto) 1.06 K/uL (0.11-0.59); Monocytes % (auto) 7.3 %; Neutrophils # (auto) 11.42 K/uL (1.40-6.50); Neutrophils % (auto) 79.1 %; Platelet Count 216 K/uL (130-400); RDW Coefficient of Variation 12.2 % (11.5-14.5); RDW Standard Deviation 38.2 fL (36.4-46.3); Red Blood Count 3.48 M/uL (4.20-5.40); White Blood Count 14.43 K/ul (4.8-10.8)
[2025-01-04] MEDS: PRENATAL VITAMIN 1 TAB PO SCH (09:30)
[2025-01-04] MEDS: FERROUS SULFATE 325 MG TAB PO SCH (09:31)
[2025-01-04] MEDS ORDERED: diphenhydrAMINE Capsule 25 MG CAP PO PRN (13:49)
[2025-01-04] MEDS ORDERED: diphenhydrAMINE 50 MG/ML VIAL IV PRN (13:49)
[2025-01-04] MEDS ORDERED: PROMETHAZINE 12.5 MG/50.5 ML BAG IV PRN (13:49)
[2025-01-04] MEDS ORDERED: HYDROmorphone INJ 0.5 MG/0.5 ML SYR IV PRN (13:49)
[2025-01-04] MEDS ORDERED: ONDANSETRON INJ 2 MG/ML 2 ML VIAL IV PRN (13:49)
[2025-01-04] MEDS: bisacodyL 5 MG TABEC PO SCH (20:20)
[2025-01-04] MEDS: FAMOTIDINE 20 MG TAB PO PRN (20:58)
[2025-01-04] MEDS: IBUPROFEN 600 MG TAB PO SCH (20:59)
[2025-01-04] MEDS ORDERED: KETOROLAC 30 MG/ML VIAL IV PRN (21:00)
[2025-01-05 06:30] LABS: Hemoglobin 9.9 g/dl (12.0-16.0)
--- NOTE | 2025-01-05 06:49 | Obstetrical Progress Note ---
Date of Service January 05, 2025 Assessment & Plan (1) state: Plan Radha is a 29yo day 2 s/p uncomplicated repeat . Feels well today aside from 4-5/10 abdominal pain, BP slightly low otherwise VSS Continue care Encourage ambulation and Pain control with ibuprofen as needed Hgb: 10.3 -> 9.9, asymptomatic aside from abdominal soreness Home today or tomorrow Follow up with Dr. Mckeon in 6wks Admission and Anticipated Discharge Date Admission Date: January 03, 2025 Supervising Physician Co-Signing Physician Notes Resident Physician Supervision Note: I interviewed and examined the patient. Discussed with Dr. Covington and agree with findings and plan as documented in the note. Any exceptions or clarifications are listed here: [None] Documented By: Corine Arreguin MD, FACOG Subjective Radha is a 29yo day 2 s/p uncomplicated repeat . Feeling: good although some abdominal pain slightly worse than day prior Ambulation: yes Void: urinating, no BM yet Gas: yes Lochia: minimal Diet: tolerating Sx: denies other than abdominal soreness Physical Exam Physical Exam: Constitutional: WD/WN, vitals as above GI/abd: +BS, abdomen soft, generalized tenderness to palpation mainly RLQ, fundus firm palpable at lvl of umbilicus - low-transverse incision scar: healing well- no erythema, swelling, discharge, or bleeding; steristrips in place Ext: no LE edema, calves nontender to palpation, wiggles toes Psychiatric: A&Ox3, euthymic Results & Data Vital Signs (Past 12 Hours) Vital Signs Temp Pulse Resp BP 01/04/25 22:54 37.0 C 62 20 98/73 L 01/04/25 20:41 36.7 C 74 18 98/75 L Resident Activity Tracking Resident Involvement: Resident Care Provided Care Provided: OB Delivery
[2025-01-05] MEDS: oxyCODONE HCL IR 5 MG TAB (IMMEDIATE RELEASE) PO PRN (14:51)
[2025-01-05] MEDS: DIPHTHER/TETAN/PERTUS Vaccine (Tdap, Adol/Adult) 0.5mL IM ONE (15:04)
[2025-01-05] MEDS: MoRPHine SULFATE PF 1 MG/ML 10 ML AMP/VIAL INT SPINAL ONE (15:04)
[2025-01-05] MEDS ORDERED: bisacodyL 10 MG SUPP PR PRN (20:37)
[2025-01-05] MEDS: IBUPROFEN 600 MG TAB PO PRN (21:31)
[2025-01-06] MEDS: ACETAMINOPHEN 325 MG TAB PO PRN (03:42)
--- NOTE | 2025-01-06 06:08 | Obstetrical Progress Note ---
Date of Service January 06, 2025 Assessment & Plan (1) state: Plan Radha is a 29yo day 3 s/p uncomplicated repeat . Feels well today aside from continued 4-5/10 abdominal pain, BP slightly low otherwise VSS Continue care Encourage ambulation and Pain control with ibuprofen as needed Hgb: 10.3 -> 9.9, asymptomatic aside from abdominal soreness Home today as long as she and baby continue to be medically stable Follow up with Dr. Mckeon in 6wks Admission and Anticipated Discharge Date Admission Date: January 03, 2025 Supervising Physician Co-Signing Physician Notes Resident Physician Supervision Note: I interviewed and examined the patient. Discussed with Dr. Covington and agree with findings and plan as documented in the note. Any exceptions or clarifications are listed here: [ ] Documented By: Marine Rollins MD, FACOG Subjective Radha is a 29yo day 3 s/p uncomplicated repeat . Feeling: good although some abdominal pain slightly worse than day prior, had a rough night concerned about baby crying and being down weight and having to resort to bottle feeding, eventually accepted formula as an option and got some rest Ambulation: yes Void: yes Gas: yes Lochia: minimal Diet: tolerating Feeds: breast, bottle as needed Sx: denies other than abdominal soreness Physical Exam Physical Exam: Constitutional: WD/WN, vitals as above GI/abd: +BS, abdomen soft, generalized tenderness to palpation mainly RLQ, fundus firm palpable at lvl of umbilicus - low-transverse incision scar: healing well- no erythema, swelling, discharge, or bleeding Ext: no LE edema, calves nontender to palpation, wiggles toes Psychiatric: A&Ox3, euthymic Results & Data Vital Signs (Past 12 Hours) Vital Signs Temp Pulse Resp BP Pulse Ox O2 Del Method 01/06/25 00:30 36.6 C 67 16 99/64 L 99 Room Air 01/05/25 19:30 Room Air 01/05/25 19:30 36.9 C 72 18 100/65 97 Room Air Resident Activity Tracking Resident Involvement: Resident Care Provided Care Provided: OB Delivery
[2025-01-06 14:50] VITALS: BP 107/68; RESP 16; TEMP 98.4; O2SAT 97
[2025-01-06 17:47] VITALS: PULSE 68
--- NOTE | 2025-01-07 14:20 | Coding Query ---
CODING QUERY To promote full compliance with coding requirements relating to patient care, provider participation is requested in all cases of gas operations analyst uncertainty. Please assist us with the question(s) below: Coding Question(s): Please document weeks of gestation 39 Physician's Response(s): Thank you Marinemervin Ryder Principal Diagnosis: "that condition established after study, to be chiefly responsible for occasioning the admission of the patient to the hospital for care." Co-Existing Principal Diagnosis: "when two or more diagnoses equally meet the criteria for principal diagnosis as determined by the circumstances of admission, diagnostic work up, and/or therapy provided, and the Alphabetic Index, Tabular List, or another coding guideline does not provide sequencing direction, any one of the diagnoses may be sequenced first." "When the physician has documented what appears to be a current diagnosis in the body of the record, but has not included the diagnosis in the final diagnostic statement, the physician should be asked whether the diagnosis should be added." (Source Coding [facility] 2 QTR90. p3-4) RORY
--- NOTE | 2025-01-11 07:41 | Discharge Summary ---
Date of Service January 11, 2025 Admission HPI Per Admitting Provider Visit NAYAN Calculator Estimated Delivery Date Method Current WG Current Estimate 01/08/25 LMP (Certain) 38w 2d Other Estimates 01/10/25 Ultrasound #1 38w 0d LMP: 04/03/24 : 3 Full term: 1 Premature: 0 Total Number of Induced Abortions: 0 Total Number of Spontaneous Abortions: 1 Ectopics: 0 Multiple births: 0 Number of Living Children: 1 and Delivery Plans Previous *Favoring repeat. C/S SCHEDULED FOR 01/06/[address] 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, and Type 4 *FOB negative Hx of PPD Conceived on clomid Marginal cord insertion Rh neg *Rhogam given 10/19/24 - SP Protocols Admission Exam (Per Admitting) Constitutional WD/WN, vitals as above well developed and well nourished Respiratory normal respiratory effort, lungs clear to auscultation normal respiratory effort Cardiovascular RRR, no murmur, no edema Gastrointestinal (Abdomen) normal bowel sounds, soft, nontender, no hepatosplenomegaly Discharge Data Consultations 01/03/25 18:12 Consult Anesthesiology Stat Procedures Performed Operation Date: 01/03/25 18:45 Actual Procedures p Section in - Charmaine. Josh Mckeon MD, FACOG Hospital Course (1) state: Ramirez Garcia is a 29yo day 3 s/p uncomplicated repeat . Feels well today aside from continued 4-5/10 abdominal pain, BP slightly low otherwise VSS Continue care Encourage ambulation and Pain control with ibuprofen as needed Hgb: 10.3 -> 9.9, asymptomatic aside from abdominal soreness Home today as long as she and baby continue to be medically stable Follow up with Dr. Mckeon in 6wks Supervising Physician Co-Signing Physician Notes Resident Physician Supervision Note: I interviewed and examined the patient. Discussed with Dr. Covington and agree with findings and plan as documented in the note. Any exceptions or clarifications are listed here: [ ] Documented By: Marine Rollins MD, FACOG Coding Level of Care Code None Diagnoses state Z39.2
== END 2025-01-06 16:55 | disposition home or self-care (01) | DRG 788 ==
LOC: OPB 17:38 → 4S1 17:44 → 4E2 23:41